=== PATIENT | female | born 1995 | race Caucasian/White ===

== ENCOUNTER 2018-12-23 20:13 | Emergency (ER) | payer SELFPAY ==
[~2018-12-23] VITALS: Ht 165.1 cm; Wt 52.2 kg
--- NOTE | 2018-12-23 20:40 | NUR ---
ED Nurse Note: pt walked in c/o blood in urine x 1hr, pain 2-3days. Pt is AO x 4times, VSS, on room air no distress. ERMD seen Pt at bedside.
--- NOTE | 2018-12-23 20:58 | NUR ---
ED Nurse Note: Urine sample sent to lab.
[2018-12-23 21:07] VITALS: BP 132/79
[2018-12-23 21:29] LABS: APPEARANCE,URINE CLEAR; BILIRUBIN, URINE NEGATIVE (NEGATIVE); COLOR,URINE PALE YELLOW; GLUCOSE, URINE (UA) NEGATIVE (NEGATIVE); KETONES,URINE NEGATIVE (NEGATIVE); LEUKOCYTE ESTERASE ,URINE 2+ (NEGATIVE); NITRITE,URINE NEGATIVE (NEGATIVE); PH,URINE 6 (4.5-8.0); PROTEIN,URINE 2+ (NEGATIVE); UROBILINOGEN,URINE NORMAL MG/DL (0.0-1.0)
[2018-12-23] MEDS ORDERED: NITROFURANTOIN100 M2 ORAL (21:47)
[2018-12-23] MEDS ORDERED: PHENAZOPYRIDIN200 MG ORAL (21:47)
--- NOTE | 2018-12-23 21:47 | Emergency Room Report ---
History of Present Illness General Chief Complaint: Female Urogenital Problems Source: Patient Present Illness HPI 23-year-old female with history of recurrent urinary tract infection here complaining of 1 day of dysuria and hematuria. Denies flank pain, fever and chills, nausea vomiting. Complains of suprapubic pain rating a 5 out of 10 without radiation. Denies vaginal discharge however complains of urinary frequency and dysuria. Has not taken medication for symptom relief. Last menstrual period was 1 week ago and just ended. Denies chest pain, shortness of breath, palpitation, and other associated symptoms. Denies recent sexual intercourse. Allergies: Coded Allergies: No Known Allergies (Unverified , 12/23/18) Patient History Past Medical History: see triage record Past Surgical History: unable to obtain Pertinent Family History: none Last Menstrual Period: 12/16/18 Now: No Immunizations: UTD Reviewed Nursing Documentation: PMH: Agreed; PSxH: Agreed Nursing Documentation-PMH Past Medical History: No Stated History Review of Systems All Other Systems: negative except mentioned in HPI Physical Exam Vital Signs Date Time Temp Pulse Resp B/P (MAP) Pulse Ox O2 Delivery O2 Flow Rate FiO2 12/23/18 20:19 98.2 61 18 125/88 (100) 99 Room Air Sp02 EP Interpretation: reviewed, normal General Appearance: no apparent distress, alert, GCS 15, non-toxic Head: normocephalic, atraumatic Eyes: bilateral eye normal inspection, bilateral eye PERRL ENT: hearing grossly normal, normal pharynx, no angioedema, normal voice Neck: normal inspection Respiratory: chest non-tender, lungs clear, normal breath sounds, speaking full sentences Cardiovascular #1: regular rate, rhythm, no edema, no murmur Gastrointestinal: normal inspection, soft, no mass Genitourinary: no CVA tenderness Musculoskeletal: back normal, gait/station normal, normal range of motion, non- tender Neurologic: alert, oriented x3, responsive, motor strength/tone normal, sensory intact, speech normal Psychiatric: judgement/insight normal, memory normal, mood/affect normal, no suicidal/homicidal ideation Skin: no rash Lymphatic: no adenopathy Medical Decision Making PA Attestation All diagnoses and treatment plans were reviewed and discussed with my supervising physician Dr. Isbell Diagnostic Impression: Primary Impression: UTI (urinary tract infection) ER Course 23-year-old female with history of recurrent urinary tract infection here complaining of 1 day of dysuria and hematuria. Denies flank pain, fever and chills, nausea vomiting. Complains of suprapubic pain rating a 5 out of 10 without radiation. Denies vaginal discharge however complains of urinary frequency and dysuria. Has not taken medication for symptom relief. Last menstrual period was 1 week ago and just ended. Denies chest pain, shortness of breath, palpitation, and other associated symptoms. Denies recent sexual intercourse. Ddx considered but are not limited to: UTI, pylonephritis, urinary incontinence , prolapsed bladder Vital signs: are WNL, pt. is afebrile H&PE are most consistent with: Uncomplicated UTI ORDERS: UA, urine test, Macrobid, Pyridium ED INTERVENTIONS: None required at this time. DISCHARGE: At this time pt. is stable for d/c to home. Will provide printed patient care instructions, and any necessary prescriptions. Care plan and follow up instructions have been discussed with the patient prior to discharge. Follow-up with primary care provider if worsening symptoms return to emergency room Last Vital Signs Date Time Temp Pulse Resp B/P (MAP) Pulse Ox O2 Delivery O2 Flow Rate FiO2 12/23/18 21:07 98.4 78 18 132/79 100 Room Air Disposition: HOME, SELF-CARE Condition: Stable Referrals: NOT CHOSEN IPA/,REFERRING (PCP) Patient Instructions: Urinary Tract Infection Additional Instructions: Take medication as directed follow-up with your primary care provider if worsening symptoms and more blood in urine return to the emergency room. Denver Fox Dec 23, 2018 21:47
[2018-12-23 21:57] VITALS: BP 122/75
[2018-12-23 21:58] VITALS: BP 122/75
--- NOTE | 2018-12-23 21:58 | NUR ---
ER DISCHARGE NOTE: Patient is cleared to be discharged per ERMD, pt is aox4, on room air, with stable vital signs. pt was given dc and prescription instructions, pt was able to verbalize understanding, pt id band removed without complications. pt is able to ambulate with steady gait with boyfriend. pt took all belongings.
[2018-12-23] MEDS ORDERED: Phenazopyridine 200mg tab ORAL ONE (22:00)
== END 2018-12-23 21:59 | disposition home or self-care (01) ==
LOC: EMR 20:40
DX: N39.0 Urinary tract infection, site not specified (principal)
CPT/HCPCS: 81001; 81025; 99282